=== PATIENT | female | born 1975 | race Caucasian/White ===

== ENCOUNTER → 2021-05-23 12:07 | Outpatient (BNVA) | payer SELFPAY | PROVIDERS: PCP Family Medicine; Visit Provider Nurse Practitioner Family | DX: I10 Essential (primary) hypertension (principal) | CPT/HCPCS: 80053 ==

== ENCOUNTER → 2023-03-05 12:20 | Outpatient (BNVA) | payer MEDICAID, SELFPAY | PROVIDERS: PCP Family Medicine; Visit Provider Nurse Practitioner Family | DX: B19.20 Unspecified viral hepatitis C without hepatic coma (principal); I10 Essential (primary) hypertension; R25.2 Cramp and spasm; G47.00 Insomnia, unspecified | CPT/HCPCS: 80053; 80061; 83735; 84443; 85025; 85379; 86705; 86706; 86709; 86803; 87340; 87522; 87806 ==

== ENCOUNTER 2023-03-07 12:57 | Emergency (ER) | payer MEDICAID, SELFPAY ==
[2023-03-07 13:00] VITALS: BP 140/76; PULSE 79; TEMP 36.8; O2SAT 97; BMI 29.2
--- NOTE | 2023-03-07 13:19 | USCV_ITS ---
Katie Mann Age: 47 Gender: F : 1975 Exam Date: 03/07/2023 14:17 Ordering Phys: Pollo Morales DO Technologist: Radu Lynch Exam Location: [facility] [place]_ Indication: rt leg swelling and pain PROCEDURES: Venous duplex imaging was performed in only the right lower extremity. The following venous structures were evaluated: common femoral vein, profunda vein, proximal portion of the greater saphenous vein, superficial femoral vein, and the popliteal vein. In addition, the posterior tibial and peroneal trunk were evaluated. FINDINGS: Normal 2-D Doppler and augmentation and compressibility throughout the lower extremity venous structures. Additional imaging through the proximal calf veins also reveals no thrombus. Limited evaluation of the greater saphenous vein is patent with no thrombus. CONCLUSIONS No evidence of right lower extremity DVT. Luis Schneider MD (Electronically Signed) Final Date: 07 March 2023 16:22 S
--- NOTE | 2023-03-07 13:19 | W.ED.RECABL ---
HPI - Recheck/Abnormal Lab/Rx General: Chief Complaint: Extremity Problem,Nontraumatic Stated Complaint: looking for DVT Time Seen by Provider: 03/07/23 13:08 Source: patient Mode of arrival: ambulatory History of Present Illness: 47-year-old female returns emergency room after having a D-dimer done at her primary care doctor's office that came back elevated and was advised to present here to check for DVT and a swollen irritated left right leg. Patient reports palpable nodule on the lateral aspect of the popliteal fossa. Associated symptoms: other (Swelling discomfort right leg palpable nodule popliteal fossa) Review of Systems Const: Denies: fever(s), chills, fatigue or malaise Card: Denies: chest pain, edema, dyspnea on exertion or orthopnea Resp: Denies: dyspnea, productive cough or non-productive cough GI: Denies: abdominal pain, nausea, vomiting, hematemesis, coffee ground emesis, diarrhea, constipation, bloating, hematochezia or melena : Denies: flank pain, difficulty voiding, dysuria, urinary frequency or urinary urgency Skin/Breast: Denies: rash or pruritus PFSH ED PFSH: Surgical History Hx of section Social History Smoking and tobacco status: never smoked Alcohol intake: former Desire information about alcohol rehabilitation?: No Counseling given: No Substance/Drug Use: never Desire information about substance/drug rehabilitation?: No Counseling given: No Adopted: No Caregiver/support person: No Lives independently: Yes Household members: family Housing: House Marital status: Single Number of children: 2 Highest education level completed: 10th Grade service: No Current occupational status: unemployed Physical Exam Const: COMMON NORMALS: no acute distress GENERAL APPEARANCE: cooperative and comfortable ORIENTATION/CONSCIOUSNESS: Yes awake, Yes oriented to person, Yes oriented to place and Yes oriented to time HENMT: COMMON NORMALS: normocephalic, atraumatic and hearing grossly normal bilaterally HEAD & SCALP: normocephalic and atraumatic Resp: COMMON NORMALS: normal respiratory effort, No retractions, No use of accessory muscles and clear to auscultation bilaterally AUSCULTATION: clear to auscultation bilaterally Cardio: COMMON NORMALS: regular rate, regular rhythm and No murmurs present (Cardio) RATE: regular rate RHYTHM: regular rhythm GI: COMMON NORMALS: Soft to palpation and No hepatosplenomegaly present AUSCULTATION: Yes normoactive bowel sounds PALPATION: Yes Soft to palpation, No Tenderness to palpation present (GI), No Guarding due to palpation present (GI) and Yes No hepatosplenomegaly present Extremity: COMMON NORMALS: normal to inspection, capillary refill normal, no clubbing, cyanosis or edema, no calf tenderness and no pedal edema OTHER: Moderate tenderness right calf palpable isolated nodule in the lateral portion of the popliteal fossa near the quadriceps tendons tendons themselves are palpably intact. Neuro: SENSORIUM/ORIENTATION: Yes oriented to person, Yes oriented to place and Yes oriented to time Skin: COMMON NORMALS: no rashes or lesions noted GENERAL SKIN EXAM: no rashes or lesions noted Course Vital Signs: Vital signs: Vital Signs Temperature 98.2 F 03/07/23 13:00 Pulse Rate 67 03/07/23 14:36 Blood Pressure 133/77 03/07/23 14:36 Pulse Oximetry 98 03/07/23 14:36 Oxygen Delivery Me thod Room Air 03/07/23 13:00 MDM - Recheck/Abnormal Lab/Rx Medical Decision Making Exam unremarkable. Venous duplex negative. Pt not tachycardic and no dyspnea or chest pain. d/C home return if has further problems. Medical Records I reviewed the patient's medical records. Lab Data I reviewed the patient's lab results. Discharge Plan Discharge Patient Disposition: Home Clinical Impression: Nodule of soft tissue Condition: Stable Prescriptions: No Action lisinopril-hydrochlorothiazide 20-12.5 mg tablet 1 tab PO DAILY Qty: 30 2RF cyclobenzaprine 10 mg tablet 10 mg PO TID PRN (Reason: muscle spasm) Qty: 30 0RF Rx Instructions: may cause drowsiness Discharge Orders: Discharge ED (Routine); Ordered 03/07/23 Ordered By: Pollo Morales Referrals: Tammy Cruz MD [Physician] - Discharge Diet: Usual diet Discharge Activity: Resume usual activity Patient Instructions: Opioid Safety, Pain Management Activity Restrictions/Additional Instructions: Your evaluated for DVT in the emergency room. There are no signs of DVT on the ultrasound on your leg. There is a soft tissue nodule behind the knee that was not associated with a blood vessel. Can follow-up with your primary care doctor if this persists. No emergent condition present at this time. Coding Level of Care Code ED Feather Stitcher for Brittany Manzanares
[2023-03-07 14:36] VITALS: BP 133/77; PULSE 67; O2SAT 98
== END 2023-03-07 14:35 | disposition home or self-care (01) ==
PROVIDERS: Emergency Provider Family Medicine; PCP Nurse Practitioner Family
DX: R22.41 Localized swelling, mass and lump, right lower limb (principal)
CPT/HCPCS: 93971; 99284

== ENCOUNTER 2023-03-31 16:11 | Emergency (ER) | payer MEDICAID, SELFPAY ==
[2023-03-31 16:13] VITALS: BP 149/101; PULSE 89; RESP 18; TEMP 36.4; O2SAT 97; BMI 24.0
--- NOTE | 2023-03-31 16:23 | CTR_ITS ---
PROCEDURE INFORMATION: Exam: CT Abdomen And Pelvis With Contrast Exam date and time: 03/31/2023 5:28 PM Age: 47 years old Clinical indication: Abdominal pain; Epigastric TECHNIQUE: Imaging protocol: Computed tomography of the abdomen and pelvis with contrast. Radiation optimization: All CT scans at this facility use at least one of these dose optimization techniques: automated exposure control; mA and/or kV adjustment per patient size (includes targeted exams where dose is matched to clinical indication); or iterative reconstruction. Contrast material: OMNI 350; Contrast volume: 100 ml; Contrast route: INTRAVENOUS (IV); REPORTING DATA: Count of CT and Cardiac NM exams in prior 12 months: This patient has received 0 known CTs and 0 known cardiac nuclear medicine studies in the 12 months prior to the current study. COMPARISON: CT abdomen wo con [id number] 10/20/2016 5:34 PM RADIATION DOSE METRICS: Total DLP (mGy-cm): 579 FINDINGS: Lungs: Emphysematous changes. Diaphragm: Small hiatal hernia. Liver: Hepatic steatosis. Gallbladder and bile ducts: Normal. No calcified stones. No ductal dilation. Pancreas: Normal. No ductal dilation. Spleen: Normal. No splenomegaly. Adrenal glands: Normal. No mass. Kidneys and ureters: Mild right hydronephrosis without obstructing lesion of uncertain etiology a, perhaps reflecting sequelae of a recently passed calculus depending on the clinical scenario. Stomach and bowel: Prominent fluid in the colon, please correlate for colitis. Appendix: No evidence of appendicitis. Intraperitoneal space: Unremarkable. No free air. No significant fluid collection. Vasculature: Unremarkable. No abdominal aortic aneurysm. Lymph nodes: Unremarkable. No enlarged lymph nodes. Urinary bladder: Unremarkable as visualized. Reproductive: 17 mm cervical nabothian cyst. Left ovary 3.1 cm septated cyst, likely follicular. Bones/joints: Unremarkable. No acute fracture. Soft tissues: Unremarkable. CT/CT abdomen pelvis w con* [id number] IMPRESSION: 1. Prominent fluid in the colon, please correlate for colitis. 2. 17 mm cervical nabothian cyst. 3. Left ovary 3.1 cm septated cyst, likely follicular. 4. Mild right hydronephrosis without obstructing lesion of uncertain etiology a, perhaps reflecting sequelae of a recently passed calculus depending on the clinical scenario. 5. Small hiatal hernia. 6. Emphysematous changes. 7. Hepatic steatosis.
--- NOTE | 2023-03-31 16:25 | W.ED.ABDPA2 ---
Documented by User: BRIAN Bergman 03/31/23 17:01 HPI - Abdominal Pain General: Chief Complaint: Abdominal Pain Stated Complaint: ABD PAIN Time Seen by Provider: 03/31/23 16:12 History of Present Illness: Patient is a 47-year-old female that presents to the emergency department in custody. She arrives with complaints of upper abdominal pain that really localizes epigastrium. This has been going on for about a week, since starting her new antibiotics?Augmentin. She reports nausea vomiting and diarrhea. Recently diagnosed with hepatitis B. She also has chronic hepatitis C. Is scheduled for treatment starting next week. Associated Symptoms: Reports bloating, diarrhea, nausea and vomiting; Denies chills, constipation, GI cramping, dysuria, fever(s), hematochezia and hematuria Review of Systems General: Reports: 10 or more systems reviewed and unremarkable except in HPI and below Const: Reports: change in appetite and fatigue; Denies: fever(s), chills, change in weight or malaise Card: Denies: chest pain, palpitations, irregular heart rhythm, edema, dyspnea on exertion, orthopnea or leg pain with exertion Resp: Denies: dyspnea, productive cough, non-productive cough, wheezing, stridor or chest congestion GI: Reports: abdominal pain, nausea, vomiting, diarrhea and bloating; Denies: dysphagia, constipation, GI cramping or hematochezia : Denies: flank pain, difficulty voiding, dysuria, urinary frequency, urinary urgency, urinary hesitancy, oliguria or hematuria Musc: Denies: neck pain, back pain, extremity pain, joint pain, joint swelling, joint redness, joint warmth or muscle weakness Skin/Breast: Denies: rash, pruritus, erythema, photosensitivity or new lesions Neuro: Denies: headache(s), numbness in extremities, weakness in extremities, sensory changes, lack of coordination, difficulty walking, frequent falls, dizziness, confusion, Slurred speech present, difficulty communicating thoughts, seizure-like activity or involuntary movements Endo: Denies: polyuria, polydipsia or tired all the time Vin/Lymph: Denies: easy bruising or easy bleeding PFSH ED PFSH: Surgical History Hx of section Social History Smoking and tobacco status: never smoked Alcohol intake: former Desire information about alcohol rehabilitation?: No Counseling given: No Substance/Drug Use: never Desire information about substance/drug rehabilitation?: No Counseling given: No Adopted: No Caregiver/support person: No Lives independently: Yes Household members: family Housing: House Marital status: Single Number of children: 2 Highest education level completed: 10th Grade service: No Current occupational status: unemployed Physical Exam Const: COMMON NORMALS: no acute distress, patient oriented x3 and alert GENERAL APPEARANCE: cooperative ORIENTATION/CONSCIOUSNESS: Yes awake, Yes oriented to person, Yes oriented to place and Yes oriented to time HENMT: COMMON NORMALS: normocephalic and atraumatic HEAD & SCALP: normocephalic and atraumatic FACE & SINUS: normal facial exam MOUTH: Normal oral and palatal mucosa present THROAT: posterior oropharynx normal Eye: COMMON NORMALS: Equal, round and reactive pupils present, EOMs intact bilaterally, conjunctivae normal and no scleral icterus GENERAL EYE: appearance normal, both eyes and all related structures ALIGNMENT: Yes alignment normal PERIORBITAL: periorbital findings normal CONJUNCTIVA: Yes conjunctivae normal PUPIL: Yes Equal, round and reactive pupils present Neck/C-Spine: COMMON NORMALS: full ROM GENERAL: Yes normal visual inspection Lymph: LYMPHATIC: no lymphadenopathy noted Chest: COMMONS NORMALS: normal inspection of the chest Breast/axilla inspection: Yes no chest deformity, asymmetry, normal contours, no nodules, masses, tenderness Resp: COMMON NORMALS: normal respiratory effort, No retractions, No use of accessory muscles and clear to auscultation bilaterally EFFORT & INSPECTION: Yes able to speak in complete sentences and Yes symmetric chest movement AUSCULTATION: clear to auscultation bilaterally Cardio: COMMON NORMALS: regular rate, regular rhythm and Peripheral pulses 2+ throughout RATE: regular rate RHYTHM: regular rhythm PERIPHERAL PULSES: Peripheral pulses 2+ throughout GI: COMMON NORMALS: Normal to inspection, nondistended, normoactive bowel sounds present and Soft to palpation INSPECTION: Yes normal to inspection AUSCULTATION: Yes normoactive bowel sounds PALPATION: Yes Soft to palpation and Yes Tenderness to palpation present (GI) Details: LUQ, RUQ and other (Epigastrium) RECTAL EXAM: deferred Extremity: COMMON NORMALS: normal to inspection GENERAL: Yes normal exam except as noted Neuro: COMMON NORMALS: patient oriented x3 SENSORIUM/ORIENTATION: Yes alert, Yes oriented to person, Yes oriented to place and Yes oriented to time CRANIAL NERVES: Yes CN normal except as noted Psych: COMMON NORMALS: mental status grossly normal, Normal thought process present, cooperative, activity/motor behavior normal, denies homicidal ideation and denies suicidal ideation THOUGHT PROCESS: Normal thought process present Skin: COMMON NORMALS: no rashes or lesions noted, no wounds and turgor normal GENERAL SKIN EXAM: no rashes or lesions noted and turgor normal Course Vital Signs: Vital signs: Vital Signs Temperature 97.6 F 03/31/23 16:13 Pulse Rate 82 03/31/23 17:47 Respiratory Rate 18 03/31/23 16:13 Blood Pressure 165/114 03/31/23 17:47 Pulse Oximetry 99 03/31/23 17:47 Oxygen Delivery Me thod Room Air 03/31/23 16:13 MDM - Abdominal Pain Medical Decision Making Patient was evaluated in the emergency department for complaints that really sent patient has nausea vomiting diarrhea associated with this. Onset approximately week ago after starting Augmentin and hydrochlorothiazide. Differential diagnosis includes peptic ulcer disease, gastritis, gastroenteritis, pancreatitis In the emergency department we initiated lab and radiographic diagnostics. This included CBC, CMP, lipase, lactic acid, urinalysis. Also obtained a CT abdomen pelvis with contrast. Patient's symptoms were treated with a GI cocktail and Protonix. While awaiting laboratory and graphic diagnostics I have transition care to [facility] Lab Data 03/31/23 16:42 03/31/23 17:30 Labs/Radiology: Radiology Impressions Abdomen/Pelvis CT 03/31/23 16:23 IMPRESSION: 1. Prominent fluid in the colon, please correlate for colitis. 2. 17 mm cervical nabothian cyst. 3. Left ovary 3.1 cm septated cyst, likely follicular. 4. Mild right hydronephrosis without obstructing lesion of uncertain etiology a, perhaps reflecting sequelae of a recently passed calculus depending on the clinical scenario. 5. Small hiatal hernia. 6. Emphysematous changes. 7. Hepatic steatosis. Laboratory Results WBC 7.20 10^3/uL (3.29-11.43) 03/31/23 16:42 RBC 5.16 10^6/uL (3.85-5.65) 03/31/23 16:42 Hgb 15.00 g/dL (11.27-16.99) 03/31/23 16:42 Hct 44.7 % (36-47) 03/31/23 16:42 MCV 86.6 fl (85-98) 03/31/23 16:42 MCH 29.1 pg (27-33) 03/31/23 16: MCHC 33.6 g/dL (30-55) 03/31/23 16:42 RDW 13.2 % (12.1-15.1) 03/31/23 16:42 Plt Count 245 10^3/cmm (157-399) 03/31/23 16:42 MPV 10.6 fL (7.4-10.4) H 03/31/23 16:42 Neut % (Auto) 65.4 % 03/31/23 16:42 Lymph % (Auto) 26.3 % 03/31/23 16:42 [place] % (Auto) 5.8 % 03/31/23 16:42 Eos % (Auto) 1.5 % 03/31/23 16:42 Baso % (Auto) 0.7 % 03/31/23 16: Neut # (Auto) 4.71 10^3/uL (1.8-7.7) 03/31/23 16:42 Lymph # (Auto) 1.9 10^3/uL (0.8-4.8) 03/31/23 16:42 [place] # (Auto) 0.4 10^3/uL (0.2-0.9) 03/31/23 16:42 Eos # (Auto) 0.1 10^3/uL (0.0-0.8) 03/31/23 16:42 Baso # (Auto) 0.1 10^3/uL (0.0-0.1) 03/31/23 16: Nucleated RBC % (auto) 0 % 03/31/23: Nucleated RBCs # 0.0 /100WBC 03/31/23 16:42 Sodium 138 mmol/L (136-145) 03/31/23 17:30 Potassium 3.7 mmol/L (3.5-5.1) 03/31/23 17:30 Chloride 103 mmol/L (98-107) 03/31/23 17:30 Carbon Dioxide 28 mmol/L (22-29) 03/31/23 17:30 Anion Gap 10.7 (5-19) 03/31/23 17:30 BUN 12 mg/dL (6-20) 03/31/23 17:30 Creatinine 0.6 mg/dL (0.5-0.9) 03/31/23 17:30 GFR Calculation 106.7 mL/min (90-130) 03/31/23 17:30 Glucose 154 mg/dL (65-115) H 03/31/23 17:30 Calculated Osmolality 289 mOsm/kg (285-295) 03/31/23 17:30 Lactic Acid 1.2 mmol/L (0.5-2.2) 03/31/23 17:30 Calcium 8.7 mg/dL (8.5-10.5) 03/31/23 17:30 Total Bilirubin 0.4 mg/dL (0.15-1.2) 03/31/23 17:30 AST 26 U/L (0-32) 03/31/23 17:30 ALT 33 U/L (0-33) 03/31/23 17:30 Alkaline Phosphatase 108 U/L (35-105) H 03/31/23 17:30 Total Protein 7.9 g/dL (6.6-8.7) 03/31/23 17:30 Albumin 4.3 g/dL (3.5-5.2) 03/31/23 17:30 Globulin 3.6 g/dL (1.3-4.6) 03/31/23 17:30 Lipase 88 U/L (13-60) H 03/31/23 17:30 Urine Color Straw (Yellow) 03/31/23 17:42 Urine Appearance Clear (CLEAR) 03/31/23 17:42 Urine pH 7 (5-7) 03/31/23 17:42 Ur Specific [place] 1.005 (1.005-1.030) 03/31/23 17:42 Urine Protein Neg (Negative) 03/31/23 17:42 Urine Glucose (UA) Trace (Normal) H 03/31/23 17:42 Urine Ketones Negative (Negative) 03/31/23 17:42 Urine Blood Neg (Negative) 03/31/23 17:42 Urine Nitrate Negative (Negative) 03/31/23 17:42 Urine Bilirubin Neg (Negative) 03/31/23 17:42 Urine Urobilinogen Norm mg/dL (Negative) 03/31/23 17:42 Ur Leukocyte Esterase Negative (Negative) 03/31/23 17:42 No radiology studies performed this visit Discharge Plan Discharge Patient Disposition: Home Clinical Impression: Gastritis Qualifiers: Gastritis type: unspecified gastritis Chronicity: unspecified Gastritis bleeding: without bleeding Qualified Code(s): K29.70 - Gastritis, unspecified, without bleeding Adverse drug effect Qualifiers: Encounter type: initial encounter Qualified Code(s): T50.905A - Adverse effect of unspecified drugs, medicaments and biological substances, initial encounter Condition: Stable Prescriptions: New pantoprazole 40 mg tablet,delayed release (DR/EC) 40 mg PO DAILY Qty: 14 0RF No Action lisinopril-hydrochlorothiazide 20-12.5 mg tablet 1 tab PO DAILY Qty: 30 2RF tizanidine 4 mg tablet 4 mg PO Q8H PRN (Reason: muscle spasticity) Qty: 60 0RF diclofenac sodium 75 mg tablet,delayed release (DR/EC) 75 mg PO BID PRN (Reason: pain) Qty: 60 0RF Rx Instructions: no nsaids with this amoxicillin-pot clavulanate 875-125 mg tablet 1 tab PO BID 10 Days Qty: 20 0RF Discharge Orders: Discharge ED (Routine); Ordered 03/31/23 Ordered By: Foster Harding Referrals: Jaycee Pena FNP [Primary Care Provider] - Discharge Diet: Usual diet Discharge Activity: Increase activity as tolerated Patient Instructions: Gastritis (ED) Activity Restrictions/Additional Instructions: Hold diclofenac. This most likely is irritating her stomach causing increased pain and discomfort. Continue antibiotic for your dental infection. You may use Tylenol for pain relief. Follow-up with primary care for further instructions. Return to ED for blood in vomit or stool, fever greater than 100.4, or new concerns. Sign Out Sign Out Data: Patient Sign Out occurred on 03/31/23 at 17:15. Patient's care was discussed, and care was transferred from to Foster Harding. Coding Level of Care Code ED Supervisor Instrument Maintenance for Chg Fwd Documented by User: GRISELDA Ridley 03/31/23 18:25 HPI - Abdominal Pain General: Chief Complaint: Abdominal Pain Stated Complaint: ABD PAIN Time Seen by Provider: 03/31/23 16:12 PFSH ED PFSH: Surgical History Hx of section Social History Smoking and tobacco status: never smoked Alcohol intake: former Desire information about alcohol rehabilitation?: No Counseling given: No Substance/Drug Use: never Desire information about substance/drug rehabilitation?: No Counseling given: No Adopted: No Caregiver/support person: No Lives independently: Yes Household members: family Housing: House Marital status: Single Number of children: 2 Highest education level completed: 10th Grade service: No Current occupational status: unemployed Course Vital Signs: Vital signs: Vital Signs Temperature 97.6 F 03/31/23 16:13 Pulse Rate 82 03/31/23 17:47 Respiratory Rate 18 03/31/23 16:13 Blood Pressure 165/114 03/31/23 17:47 Pulse Oximetry 99 03/31/23 17:47 Oxygen Delivery Me thod Room Air 03/31/23 16:13 MDM - Abdominal Pain Medical Decision Making Patient was evaluated in the emergency department for complaints that really sent patient has nausea vomiting diarrhea associated with this. Onset approximately week ago after starting Augmentin and hydrochlorothiazide. Differential diagnosis includes peptic ulcer disease, gastritis, gastroenteritis, pancreatitis In the emergency department we initiated lab and radiographic diagnostics. This included CBC, CMP, lipase, lactic acid, urinalysis. Also obtained a CT abdomen pelvis with contrast. Patient's symptoms were treated with a GI cocktail and Protonix. While awaiting laboratory and graphic diagnostics I have transition care to Mehdi VILLALOBOS Patient came in today due to some nausea vomiting and diarrhea after starting antibiotics and being placed on diclofenac. Patient appears nontoxic. Abdomen soft with some gastric tenderness. Laboratory values were unremarkable. CT shows fluid in the colon but no other significant abnormalities. Patient was recommended to hold diclofenac while taking the Augmentin. She can reattempt using the diclofenac after the use of the Augmentin. Patient to follow-up with her primary care for management of her pain. At this time I recommended just 2 g of acetaminophen a day as needed since she has a history of hepatitis. Lab Data 03/31/23 16:42 03/31/23 17:30 Labs/Radiology: Radiology Impressions Abdomen/Pelvis CT 03/31/23 16:23 IMPRESSION: 1. Prominent fluid in the colon, please correlate for colitis. 2. 17 mm cervical nabothian cyst. 3. Left ovary 3.1 cm septated cyst, likely follicular. 4. Mild right hydronephrosis without obstructing lesion of uncertain etiology a, perhaps reflecting sequelae of a recently passed calculus depending on the clinical scenario. 5. Small hiatal hernia. 6. Emphysematous changes. 7. Hepatic steatosis. Laboratory Results WBC 7.20 10^3/uL (3.29-11.43) 03/31/23 16:42 RBC 5.16 10^6/uL (3.85-5.65) 03/31/23 16:42 Hgb 15.00 g/dL (11.27-16.99) 03/31/23 16:42 Hct 44.7 % (36-47) 03/31/23 16:42 MCV 86.6 fl (85-98) 03/31/23 16:42 MCH 29.1 pg (27-33) 03/31/23 16:42 MCHC 33.6 g/dL (30-55) 03/31/23 16:42 RDW 13.2 % (12.1-15.1) 03/31/23 16:42 Plt Count 245 10^3/cmm (157-399) 03/31/23 16:42 MPV 10.6 fL (7.4-10.4) H 03/31/23 16:42 Neut % (Auto) 65.4 % 03/31/23 16:42 Lymph % (Auto) 26.3 % 03/31/23 16:42 [place] % (Auto) 5.8 % 03/31/23 16:42 Eos % (Auto) 1.5 % 03/31/23 16:42 Baso % (Auto) 0.7 % 03/31/23 16:42 Neut # (Auto) 4.71 10^3/uL (1.8-7.7) 03/31/23 16:42 Lymph # (Auto) 1.9 10^3/uL (0.8-4.8) 03/31/23 16:42 [place] # (Auto) 0.4 10^3/uL (0.2-0.9) 03/31/23 16:42 Eos # (Auto) 0.1 10^3/uL (0.0-0.8) 03/31/23 16:42 Baso # (Auto) 0.1 10^3/uL (0.0-0.1) 03/31/23 16:42 Nucleated RBC % (auto) 0 % 03/31/23 16:42 Nucleated RBCs # 0.0 /100WBC 03/31/23 16:42 Sodium 138 mmol/L (136-145) 03/31/23 17:30 Potassium 3.7 mmol/L (3.5-5.1) 03/31/23 17:30 Chloride 103 mmol/L (98-107) 03/31/23 17:30 Carbon Dioxide 28 mmol/L (22-29) 03/31/23 17:30 Anion Gap 10.7 (5-19) 03/31/23 17:30 BUN 12 mg/dL (6-20) 03/31/23 17:30 Creatinine 0.6 mg/dL (0.5-0.9) 03/31/23 17:30 GFR Calculation 106.7 mL/min (90-130) 03/31/23 17:30 Glucose 154 mg/dL (65-115) H 03/31/23 17:30 Calculated Osmolality 289 mOsm/kg (285-295) 03/31/23 17:30 Lactic Acid 1.2 mmol/L (0.5-2.2) 03/31/23 17:30 Calcium 8.7 mg/dL (8.5-10.5) 03/31/23 17:30 Total Bilirubin 0.4 mg/dL (0.15-1.2) 03/31/23 17:30 AST 26 U/L (0-32) 03/31/23 17:30 ALT 33 U/L (0-33) 03/31/23 17:30 Alkaline Phosphatase 108 U/L (35-105) H 03/31/23 17:30 Total Protein 7.9 g/dL (6.6-8.7) 03/31/23 17:30 Albumin 4.3 g/dL (3.5-5.2) 03/31/23 17:30 Globulin 3.6 g/dL (1.3-4.6) 03/31/23 17:30 Lipase 88 U/L (13-60) H 03/31/23 17:30 Urine Color Straw (Yellow) 03/31/23 17:42 Urine Appearance Clear (CLEAR) 03/31/23 17:42 Urine pH 7 (5-7) 03/31/23 17:42 Ur Specific [place] 1.005 (1.005-1.030) 03/31/23 17:42 Urine Protein Neg (Negative) 03/31/23 17:42 Urine Glucose (UA) Trace (Normal) H 03/31/23 17:42 Urine Ketones Negative (Negative) 03/31/23 17:42 Urine Blood Neg (Negative) 03/31/23 17:42 Urine Nitrate Negative (Negative) 03/31/23 17:42 Urine Bilirubin Neg (Negative) 03/31/23 17:42 Urine Urobilinogen Norm mg/dL (Negative) 03/31/23 17:42 Ur Leukocyte Esterase Negative (Negative) 03/31/23 17:42 Discharge Plan Discharge Patient Disposition: Home Clinical Impression: Gastritis Qualifiers: Gastritis type: unspecified gastritis Chronicity: unspecified Gastritis bleeding: without bleeding Qualified Code(s): K29.70 - Gastritis, unspecified, without bleeding Adverse drug effect Qualifiers: Encounter type: initial encounter Qualified Code(s): T50.905A - Adverse effect of unspecified drugs, medicaments and biological substances, initial encounter Condition: Stable Prescriptions: New pantoprazole 40 mg tablet,delayed release (DR/EC) 40 mg PO DAILY Qty: 14 0RF No Action lisinopril-hydrochlorothiazide 20-12.5 mg tablet 1 tab PO DAILY Qty: 30 2RF tizanidine 4 mg tablet 4 mg PO Q8H PRN (Reason: muscle spasticity) Qty: 60 0RF diclofenac sodium 75 mg tablet,delayed release (DR/EC) 75 mg PO BID PRN (Reason: pain) Qty: 60 0RF Rx Instructions: no nsaids with this amoxicillin-pot clavulanate 875-125 mg tablet 1 tab PO BID 10 Days Qty: 20 0RF Discharge Orders: Discharge ED (Routine); Ordered 03/31/23 Ordered By: Foster Harding Referrals: Jaycee Pena FNP [Primary Care Provider] - Discharge Diet: Usual diet Discharge Activity: Increase activity as tolerated Patient Instructions: Gastritis (ED) Activity Restrictions/Additional Instructions: Hold diclofenac. This most likely is irritating her stomach causing increased pain and discomfort. Continue antibiotic for your dental infection. You may use Tylenol for pain relief. Follow-up with primary care for further instructions. Return to ED for blood in vomit or stool, fever greater than 100.4, or new concerns. Sign Out Sign Out Data: Patient Sign Out occurred on 03/31/23 at 17:15. Patient's care was discussed, and care was transferred from to Foster Harding. Coding Level of Care Code ED Supervisor Instrument Maintenance for Brittany Manzanares
[2023-03-31 16:49] LABS: Basophils # 0.1 10^3/uL (0.0-0.1); Basophils % 0.7 %; Eosinophils # 0.1 10^3/uL (0.0-0.8); Eosinophils % 1.5 %; Hematocrit 44.7 % (36-47); Lymphocytes # 1.9 10^3/uL (0.8-4.8); Lymphocytes % 26.3 %; Mean Corpuscular HGB Conc 33.6 g/dL (30-55); Mean Corpuscular Hemoglobin 29.1 pg (27-33); Mean Corpuscular Volume 86.6 fl (85-98); Mean Platelet Volume 10.6 fL (7.4-10.4); Monocytes # 0.4 10^3/uL (0.2-0.9); Monocytes % 5.8 %; Neutrophils # 4.71 10^3/uL (1.8-7.7); Neutrophils % 65.4 %; Nucleated Red Blood Cells % 0 %; Platelet Count 245 10^3/cmm (157-399); Red Blood Count 5.16 10^6/uL (3.85-5.65); Red Cell Distribution Width 13.2 % (12.1-15.1)
[2023-03-31] MEDS: lidocaine 2% viscous 15 ML, aluminum-mag hydrox-simethicon 30 ML, sucralfate oral liq 1 GM PO (16:52)
[2023-03-31] MEDS: pantoprazole 40 mg SDV IVP (16:56)
[2023-03-31] MEDS: sodium chloride 0.9% 500 ML IV (16:56)
[2023-03-31] MEDS: iohexol 350 mg/mL 500 mL Btl (per mL) IV (17:32)
[2023-03-31 17:47] VITALS: BP 165/114; PULSE 82; O2SAT 99
[2023-03-31 17:54] LABS: Add Urine Microscopic? NO; Charge for UA Resulting for Rev
[2023-03-31 17:56] LABS: Bilirubin Urine Neg (Negative); Blood Urine Neg (Negative); Glucose Urine UA Trace (Normal); Ketones Urine Negative (Negative); Leukocyte Esterase Urine Negative (Negative); Nitrate Urine Negative (Negative); Protein Urine Neg (Negative); Specific Gravity, Urine 1.005 (1.005-1.030); Urine Appearance Clear (CLEAR); Urine Color Straw (Yellow); Urobilinogen Urine Norm (Negative); pH Urine 7 (5-7)
[2023-03-31 18:00] LABS: Alanine Aminotransferase 33 U/L (0-33); Albumin Level 4.3 g/dL (3.5-5.2); Alkaline Phosphatase 108 U/L (35-105); Anion Gap 10.7 (5-19); Aspartate Amino Transferase 26 U/L (0-32); Blood Urea Nitrogen 12 mg/dL (6-20); Calcium 8.7 mg/dL (8.5-10.5); Carbon Dioxide 28 mmol/L (22-29); Chloride 103 mmol/L (98-107); Creatinine Clr Calc Pharmacy 105.3912; Globulin 3.6 g/dL (1.3-4.6); Glomerular Filtration Rate 106.7 mL/min (90-130); Glucose 154 mg/dL (65-115); Lipase 88 U/L (13-60); Osmolality Calculated 289 mOsm/kg (285-295); Potassium 3.7 mmol/L (3.5-5.1); Sodium 138 mmol/L (136-145); Total Bilirubin 0.4 mg/dL (0.15-1.2); Total Protein 7.9 g/dL (6.6-8.7)
[2023-03-31 18:14] LABS: Lactic Sepsis W/Reflex 1.2 mmol/L (0.5-2.2)
[2023-03-31 18:23] VITALS: BP 179/111; PULSE 80; O2SAT 96
== END 2023-03-31 18:25 | disposition home or self-care (01) ==
PROVIDERS: Nurse Practitioner; Emergency Provider Nurse Practitioner Family; PCP Nurse Practitioner Family
DX: K29.70 Gastritis, unspecified, without bleeding (principal); T88.7XXA Unspecified adverse effect of drug or medicament, initial encounter; T50.905A Adverse effect of unspecified drugs, medicaments and biological substances, initial encounter
CPT/HCPCS: 36415; 74177; 80053; 81003; 83605; 83690; 85025; 96361; 96374; 99285; C9113; J7040; Q9967

== ENCOUNTER 2024-07-17 09:49 | Outpatient (CLI) | payer MEDICAID, SELFPAY ==
--- NOTE | 2024-07-17 09:55 | US_ITS ---
WS: [id number] RIGHT UPPER QUADRANT ULTRASOUND HISTORY: HEP C COMPARISON: 11/02/2009 Liver: 15.6 cm in length. Normal size liver. Coarse echotexture throughout the liver with mild surfac e irregularity. No mass or intrahepatic duct dilatation. Portal Vein: Normal hepatopetal flow with monophasic waveform. Gallbladder: Normally distended gallbladder with no stones or wall thickening. CBD: 0.3 cm Pancreas: Poorly visualized. Small portion of the pancreatic head is identified. Right kidney: 11.6 cm in length. Normal size and echogenicity. No hydronephrosis or mass. Aorta and IVC: Unremarkable abdominal aorta and IVC. No ascites. US/US abdomen limited [id number] IMPRESSION: 1. Normal size liver with mild coarse echotexture. Consider hepatocellular dis ease such as cirrhosis. No mass. 2. Normal gallbladder.
[2024-07-17 11:21] LABS: Basophils % 0.7 %; Eosinophils # 0.2 10^3/uL (0.0-0.8); Eosinophils % 4.4 %; Hematocrit 40.7 % (36-47); Mean Corpuscular HGB Conc 32.9 g/dL (30-55); Mean Corpuscular Hemoglobin 27.5 pg (27-33); Mean Corpuscular Volume 83.6 fl (85-98); Mean Platelet Volume 10.8 fL (7.4-10.4); Monocytes # 0.4 10^3/uL (0.2-0.9); Neutrophils # 2.72 10^3/uL (1.8-7.7); Neutrophils % 50.5 %; Nucleated Red Blood Cells % 0 %; Platelet Count 178 10^3/cmm (157-399); Red Blood Count 4.87 10^6/uL (3.85-5.65); Red Cell Distribution Width 13.5 % (12.1-15.1)
[2024-07-17 11:46] LABS: Tumor Marker Alpha Fetoprotein 1.8 ng/mL (0-8.3)
[2024-07-17 11:55] LABS: Hepatitis A Antibody IgM Non-Reactive (Nonreactive); Hepatitis B Core IgM Non-Reactive (Nonreactive); Hepatitis B Surface Antigen Non-Reactive (Nonreactive); Hepatitis C Virus Antibody Reactive (Nonreactive)
[2024-07-17 11:57] LABS: Alanine Aminotransferase 65 U/L (0-33); Albumin Level 3.9 g/dL (3.5-5.2); Alkaline Phosphatase 127 U/L (35-105); Anion Gap 17.5 (5-19); Aspartate Amino Transferase 46 U/L (0-32); Blood Urea Nitrogen 17 mg/dL (6-20); Calcium 8.9 mg/dL (8.5-10.5); Carbon Dioxide 24 mmol/L (22-29); Chloride 98 mmol/L (98-107); Glomerular Filtration Rate 105.8 mL/min (90-130); Glucose 296 mg/dL (65-115); Osmolality Calculated 295 mOsm/kg (285-295); Potassium 3.5 mmol/L (3.5-5.1); Sodium 136 mmol/L (136-145); Total Bilirubin 0.4 mg/dL (0.15-1.2); Total Protein 6.9 g/dL (6.6-8.7)
[2024-07-18 13:29] LABS: HIV 1 & 2 Antibody Non-Reactive (Non-Reactiv); HIV 1 & 2 Antigen Non-Reactive (Non-Reactiv)
[2024-07-18 15:44] LABS: HEP C RNA Viral Load Quant 452000 IU/mL (NOT DETECTED); HEP C RNA Viral Load Quant 5.66 Log IU/mL (NOT DETECTED)
[2024-07-21 05:55] LABS: Hepatitis C Genotype RNA 1a
== END 2024-07-17 09:50 | disposition home or self-care (01) ==
PROVIDERS: PCP Nurse Practitioner Family; Visit Provider Internal Medicine
DX: B18.2 Chronic viral hepatitis C (principal); R93.2 Abnormal findings on diagnostic imaging of liver and biliary tract
CPT/HCPCS: 36415; 76705; 80053; 80074; 82105; 85025; 87522; 87806; 87902